=== PATIENT | female | born 1960 | race Caucasian/White ===

== ENCOUNTER 2020-11-13 13:29 | Inpatient (IN) | payer MEDICARE, OTHER ==
[~2020-11-13] VITALS: Ht 172.7 cm; Wt 76.2 kg
--- NOTE | 2020-11-13 13:47 | NUR ---
PT IS IN ROOM #2B. DR BERGMAN EVALUATED THE PT.
[2020-11-13 14:14] LABS: BASOPHILS % (AUTO) 0.3 % (0.0-2.0); EOSINOPHILS % (AUTO) 0.3 % (0.0-7.0); HEMATOCRIT 44.4 % (31.2-41.9); LYMPHOCYTES # (AUTO) 0.6 K/uL (20.0-40.0); LYMPHOCYTES % (AUTO) 7.7 % (20.5-51.5); MEAN CORPUSCULAR HEMOGLOBIN 29.5 uug (24.7-32.8); MEAN CORPUSCULAR HGB CONC 34 g/dL (32.3-35.6); MEAN CORPUSCULAR VOLUME 87.3 fL (75.5-95.3); MONOCYTES # (AUTO) 0.2 K/uL (2.0-10.0); NEUTROPHILS # (AUTO) 7.2 K/uL (1.8-8.9); NEUTROPHILS % (AUTO) 89.7 % (38.5-71.5); PLATELET COUNT (AUTO) 57 K/uL (179-408); RED BLOOD CELL COUNT(AUTO) 5.09 MIL/uL (3.63-4.92); WHITE BLOOD COUNT (AUTO) 8.1 K/uL (3.8-11.8)
[2020-11-13 14:18] LABS: ETHANOL < 3 MG/DL (0-0)
[2020-11-13 14:22] LABS: ACETAMINOPHEN < 2.0 ug/mL (10-30); ALANINE AMINOTRANSFERASE 81 U/L (14-59); ALKALINE PHOSPHATASE 118 U/L (50-136); ASPARTATE AMINOTRANSFERASE 30 U/L (15-37); BILIRUBIN,DIRECT 0.2 mg/dL (0.0-0.2); BILIRUBIN,TOTAL 0.5 mg/dL (0.2-1.0); CARBON DIOXIDE 28 mmol/L (21-32); CHLORIDE 106 mmol/L (98-107); CREATININE 1.2 mg/dL (0.6-1.3); GLUCOSE 142 mg/dL (74-106); POTASSIUM 3.8 mmol/L (3.5-5.1); TOTAL PROTEIN, SERUM 6.5 g/dL (6.4-8.2); UREA NITROGEN, BLOOD 33 mg/dL (7-18)
[2020-11-13] MEDS ORDERED: ACET-2605 PO (14:24)
[2020-11-13] MEDS ORDERED: ARIP5TAB10 PO (14:24)
[2020-11-13] MEDS ORDERED: ACET-2154 PO (14:24)
[2020-11-13 14:30] LABS: THYROID STIMULATING HORMONE 0.774 mIU/mL (0.358-3.740)
[2020-11-13 14:48] LABS: LYMPHOCYTES % (MANUAL) 10 % (20-40); MONOCYTES % (MANUAL) 3 % (2-10); NEUTROPHILS % (MANUAL) 87 % (42-75)
[2020-11-13] MEDS ORDERED: LEVO25TA9 PO (14:50)
[2020-11-13] MEDS ORDERED: CLON1TAB23 PO (14:50)
[2020-11-13] MEDS ORDERED: ALBU2.5V38 IH (14:50)
[2020-11-13] MEDS ORDERED: DOCU100C36 PO (14:50)
[2020-11-13] MEDS ORDERED: DIVA250T4 PO (14:50)
[2020-11-13] MEDS ORDERED: BACL10TA PO (14:50)
[2020-11-13] MEDS ORDERED: DIPH25CA83 PO (14:50)
[2020-11-13] MEDS ORDERED: LACT1CAP61 PO (14:50)
[2020-11-13] MEDS ORDERED: THIA100T13 PO (14:50)
[2020-11-13] MEDS ORDERED: ZINC SULFATE PO (14:50)
[2020-11-13] MEDS ORDERED: PRED2.5T PO (14:50)
[2020-11-13] MEDS ORDERED: MELA3TAB41 PO (14:50)
[2020-11-13] MEDS ORDERED: ASCO500P18 PO (14:50)
[2020-11-13] MEDS ORDERED: ALBU6.7H9 IH (14:50)
[2020-11-13] MEDS ORDERED: MAGN400O6 PO (14:50)
[2020-11-13] MEDS ORDERED: ONDA4TAB11 SL (14:50)
[2020-11-13] MEDS ORDERED: MULT-213 PO (14:50)
[2020-11-13] MEDS ORDERED: PANT40TA2 PO (14:50)
[2020-11-13] MEDS ORDERED: CHOL-9 PO (14:50)
[2020-11-13] MEDS ORDERED: NA P133E RC (14:50)
[2020-11-13] MEDS ORDERED: BISA10SU12 RC (14:50)
[2020-11-13] MEDS ORDERED: SUMATRIPTAN SQ (14:50)
[2020-11-13] MEDS ORDERED: CRAN450T9 PO (14:50)
[2020-11-13] MEDS ORDERED: FERR325T28 PO (14:50)
[2020-11-13] MEDS ORDERED: FAMO20TA8 PO (14:50)
[2020-11-13] MEDS ORDERED: HYDR2TAB4 PO (14:50)
[2020-11-13] MEDS ORDERED: AMIT100T2 PO (14:50)
--- NOTE | 2020-11-13 15:42 | NUR ---
Payal roblero in ED - 11/13/20 at [address] BERGMAN SPOKE TO [facility] [place] FOR CONSULT.
--- NOTE | 2020-11-13 15:43 | NUR ---
CRISIS TRUCK DESPATCHER LUKASZ EVALUATED THE PT. PT WAS PLACED ON 51/50 HOLD GRAVELY DISABLED AND DANGER TO OTHERS.
[2020-11-13 16:45] VITALS: BP 109/88
--- NOTE | 2020-11-13 16:45 | NUR ---
GPS: Nursing Notes: Admitting Notes: Patient admitted to MHU on 5150 DTO & GD due to increased agitation and striking out behavior, on face to face assessment, hyperverbal, talking incoherently, talking to self, loud and pressured speech, anxious affect, poor impulse control, medically clear through ER, port a cath on right right side of chest, patent and flush today by ER staff, A/Ox1, oriented to the unit and admitting package given to the patient, Dr. Smalls and Dr. Nasir Hernandez informed of admission by charge nurse, continue to monitor for safety, continue with admission plan.
--- NOTE | 2020-11-13 16:56 | NUR ---
PT WAS TRANSFERED TO [facility] ROOM #139A. REPORT WAS GIVEN TO RN MHU.
[2020-11-13] MEDS ORDERED: BLOOD SUGAR DIAGNOSTIC 1 EACH STRIP VI ONE (17:15)
[2020-11-13] MEDS ORDERED: MAGNESIUM HYDROXIDE 30 ML LIQUID UDC PO PRN (17:15)
[2020-11-13] MEDS ORDERED: MAG HYDROX/AL HYDROX/SIMETH 30 ML LIQUID UDC PO PRN (17:15)
[2020-11-13] MEDS ORDERED: LORAZEPAM 0.5 MG TABLET PO PRN (17:15)
--- NOTE | 2020-11-13 18:00 | NUR ---
CALLED AND LEFT MESSAGE TO DR. Luis KWON REGARDING MEDICATION RECONCILIATION. ALSO TO NOTIFY THAT PT HAS A PORTACATH ON RUC. AWAITING CALL BACK. DR. ELMORE NOTIFIED OF PT'S ARRIVAL TO UNIT. ROUTING STANDING ORDERS APPLIED.
[2020-11-13] MEDS: ACETAMINOPHEN 325 MG TABLET PO PRN (19:22)
[2020-11-13 20:00] VITALS: BP 125/60
[2020-11-13] MEDS: TEMAZEPAM 7.5 MG CAPSULE PO PRN (21:05)
[2020-11-13] MEDS ORDERED: ALBUTEROL SULFATE 2.5 MG/3 ML NEBU IH PRN (22:15)
[2020-11-13] MEDS ORDERED: ACETAMINOPHEN ES 500 MG TABLET PO PRN (22:15)
[2020-11-13] MEDS ORDERED: BISACODYL 10 MG SUPP.RECT RC PRN (22:15)
[2020-11-13] MEDS ORDERED: ONDANSETRON ODT 4 MG TAB.RAPDIS SL PRN (22:15)
[2020-11-13] MEDS ORDERED: IV LACTATED RINGERS SOLUTION 1,000 ML IV PRN (22:45)
[2020-11-14] MEDS: HYDROMORPHONE HCL 2 MG TABLET PO SCH ×3 (00:14→12:19)
[2020-11-14] MEDS: LORAZEPAM 1 MG TABLET PO PRN ×2 (03:13→20:57)
--- NOTE | 2020-11-14 03:55 | NUR ---
Received patient form previous shift , half naked and in a loud, hyperverbal , energetic state. Disbursing Officer was not able to engage with this patient in any meaningful conversation d/t patient speaking tangential and was rambling on. This patient appeared unkept and verse writer noted her maryellen catheter, central line tubing was dangling off her right chest wall. Patient was medicated for anxiety and showered. After that, the central line dressing was changed and flushed line using aseptic technique. Patient tolerated it well. Noted that this patient had a low grade temperature of 99.5 at the beginning of the shift. Tylenol was given and the re check is 99.0 . Patient has been very hyperactive and was trowing linens on the floor in her room, and skipping in the hallway. Will continue to monitor patient for safety, redirect and reorient patient when needed, and provide a calm, therapeutic environment when possible.
[2020-11-14] MEDS: BACLOFEN 10 MG TABLET PO SCH ×3 (05:48→20:57)
[2020-11-14] MEDS: LEVOTHYROXINE SODIUM 25 MCG TABLET PO SCH (05:49)
--- NOTE | 2020-11-14 06:15 | NUR ---
Patient had 0 hour of sleep last night. Patient continues to respond to internal stimuli non stop. PRN and routine medications given per order. Patient tolerating medications well.
[2020-11-14 07:30] VITALS: BP 121/60
[2020-11-14] MEDS: THIAMINE HCL 100 MG TABLET PO SCH (08:35)
[2020-11-14] MEDS: FERROUS SULFATE 325 MG TABEC PO SCH ×2 (08:36→17:15)
[2020-11-14] MEDS: DOCUSATE SODIUM 100 MG CAPSULE PO SCH ×2 (08:36→17:00)
[2020-11-14] MEDS: FAMOTIDINE 20 MG TABLET PO SCH (08:36)
[2020-11-14] MEDS: BENZTROPINE MESYLATE 1 MG TABLET PO SCH ×3 (08:36→17:15)
[2020-11-14] MEDS: HALOPERIDOL 5 MG TABLET PO SCH ×3 (08:36→17:15)
[2020-11-14] MEDS: DIVALPROEX 250 MG TABLET.DR PO SCH ×3 (08:37→17:00)
[2020-11-14] MEDS ORDERED: DIVALPROEX 250 MG TABLET.DR PO SCH (09:00)
[2020-11-14 16:00] VITALS: BP 115/46
--- NOTE | 2020-11-14 16:09 | NUR ---
REQUESTED 1:1 SITTER WITH [employer]RAFTER [employer], AND JUSTIFICATION FORM SUBMITTED DUE TO PT HAVING A CENTRAL LINE. PT REMAINS CONFUSED, DISORGANIZED, AND MANIC. [employer] SAID REQUEST IS DENIED BY INCOME TAX CONSULTANT GISELE.
[2020-11-14] MEDS: HYDROMORPHONE HCL 2 MG TABLET PO PRN (17:15)
--- NOTE | 2020-11-14 18:15 | NUR ---
IVF COMPLETED. PATIENT HAS A PORTACATH. ARTEAGA NEEDLE DC'D WITHOUT INCIDENCE. STERILE DSG APPLIED TO SITE. NO DISTRESS NOTED.
[2020-11-14 20:14] VITALS: BP 128/64
[2020-11-14] MEDS: TEMAZEPAM 7.5 MG CAPSULE PO PRN (22:40)
[2020-11-14] MEDS: diphenhydrAMINE 25 MG CAP PO PRN (22:41)
[2020-11-15] MEDS: HYDROMORPHONE HCL 2 MG TABLET PO PRN (03:44)
[2020-11-15] MEDS: LORAZEPAM 1 MG TABLET PO PRN ×3 (03:44→21:44)
[2020-11-15] MEDS: BACLOFEN 10 MG TABLET PO SCH ×3 (05:53→21:41)
[2020-11-15] MEDS: LEVOTHYROXINE SODIUM 25 MCG TABLET PO SCH (05:53)
[2020-11-15 07:28] LABS: *BILIRUBIN,URIN 1+ (NEGATIVE); *BLOOD, URINE 2+ (NEGATIVE); *CLARITY,URINE CLOUDY (CLEAR); *COLOR,URINE YELLOW (YELLOW); *KETONES,URINE 1+ (NEGATIVE); LEUKOCYTE ESTERASE ,URINE NEGATIVE (NEGATIVE); NITRITE, URINE NEGATIVE (NEGATIVE); UGLUCOSE NEGATIVE (NEGATIVE)
[2020-11-15 07:30] VITALS: BP 123/84
[2020-11-15 07:36] LABS: POTASSIUM 4.1 mmol/L (3.5-5.1)
[2020-11-15 07:43] LABS: BASOPHILS % (AUTO) 0.1 % (0.0-2.0); EOSINOPHILS # (AUTO) 0.1 K/uL (0.0-0.7); EOSINOPHILS % (AUTO) 0.9 % (0.0-7.0); HEMATOCRIT 43.1 % (31.2-41.9); HEMOGLOBIN 14.5 g/dL (10.9-14.3); LYMPHOCYTES # (AUTO) 1.1 K/uL (20.0-40.0); LYMPHOCYTES % (AUTO) 9.5 % (20.5-51.5); MEAN CORPUSCULAR HEMOGLOBIN 29.5 uug (24.7-32.8); MEAN CORPUSCULAR HGB CONC 34 g/dL (32.3-35.6); MEAN CORPUSCULAR VOLUME 87.6 fL (75.5-95.3); MONOCYTES # (AUTO) 0.5 K/uL (2.0-10.0); MONOCYTES % (AUTO) 4.4 % (0.0-11.0); NEUTROPHILS # (AUTO) 9.9 K/uL (1.8-8.9); NEUTROPHILS % (AUTO) 85.1 % (38.5-71.5); PLATELET COUNT (AUTO) 62 K/uL (179-408); RED BLOOD CELL COUNT(AUTO) 4.92 MIL/uL (3.63-4.92); WHITE BLOOD COUNT (AUTO) 11.6 K/uL (3.8-11.8)
[2020-11-15 07:48] LABS: *AMPHETAMINE, URINE NEGATIVE (NEGATIVE); *CANNABINOID, URINE NEGATIVE (NEGATIVE); *COCCAINE, URINE NEGATIVE (NEGATIVE); *OPIATE, URINE POSITIVE (NEGATIVE); *PHENCYCLIDINE SCREEN,URINE NEGATIVE (NEGATIVE)
[2020-11-15] MEDS: THIAMINE HCL 100 MG TABLET PO SCH (08:53)
[2020-11-15] MEDS: diphenhydrAMINE 25 MG CAP PO PRN (08:53)
[2020-11-15] MEDS: FAMOTIDINE 20 MG TABLET PO SCH (08:53)
[2020-11-15] MEDS: BENZTROPINE MESYLATE 1 MG TABLET PO SCH ×3 (08:53→16:52)
[2020-11-15] MEDS: HALOPERIDOL 5 MG TABLET PO SCH ×3 (08:53→16:52)
[2020-11-15] MEDS: FERROUS SULFATE 325 MG TABEC PO SCH ×2 (08:53→16:52)
[2020-11-15] MEDS: DOCUSATE SODIUM 100 MG CAPSULE PO SCH ×2 (08:54→16:52)
[2020-11-15] MEDS: DIVALPROEX 250 MG TABLET.DR PO SCH ×3 (08:54→16:52)
[2020-11-15] MEDS: ACETAMINOPHEN 325 MG TABLET PO PRN (11:26)
[2020-11-15 14:19] LABS: BACTERIA,URINE MANY /HPF (NONE SEEN); RBC,URINE 0-3 /HPF (0-3); SQUAMOUS EPITHELIAL CELL,UR NONE SEEN /HPF (NONE SEEN); WBC,URINE NONE SEEN /HPF (0-3)
[2020-11-15 15:06] VITALS: BP 115/55
[2020-11-15 15:10] LABS: BAND % (MANUAL) 2 % (0-10); EOSINOPHILS % (MANUAL) 1 % (0-8); LYMPHOCYTES % (MANUAL) 8 % (20-40); MONOCYTES % (MANUAL) 3 % (2-10); NEUTROPHILS % (MANUAL) 86 % (42-75)
--- NOTE | 2020-11-15 15:46 | NUR ---
ROEL Initial Discharge Plan: Patient was recently residing at [address] [address] ([phone]). Dean practice coordinator at the facility stated that they are unable to accommodate the patient's needs at their facility and are requesting a locked SNF for the patient. ROEL spoke with Nicola ([phone]) and discussed treatment and discharge plan. ROEL will continue to work with patient, family, and MD to ensure a safe and proper discharge plan.
--- NOTE | 2020-11-15 15:48 | NUR ---
Firearms Report: Glove Turner [employer] Former [employer] completed and submitted a [employer] firearms report for 5150 grave disability and danger to others certifications. A copy of report has been placed in patient chart.
--- NOTE | 2020-11-15 15:59 | NUR ---
ROEL Family Contact: ROEL spoke with Nicola patient's brother in law ([phone]) and discussed treatment and discharge plan.
[2020-11-15 20:00] VITALS: BP 117/66
[2020-11-15] MEDS: TEMAZEPAM 7.5 MG CAPSULE PO PRN (22:42)
--- NOTE | 2020-11-16 02:37 | NUR ---
RECEIVED PATIENT IN HER ROOM. COULD BE HEARD TALKING TO HERSELF BUT DENIED HEARING VOICES.GESTURING AND RAMBLING ON.WYATT CATH HAS BEEN TAKEN OFF AND SHE EXPRESSED NO PAIN.LATER SEEN WALKING UP AND DOWN THE HALLWAY AND WAS GIVEN TAB ATIVAN AT 21:45. AT 22:42 SHE WAS GIVEN RESTORIL WITH GOOD EFFECT.SAFETY MEASURES PUT IN PLACE AND VISUAL CHECKS MADE ON HER. WILL CONTINUE TO MONITOR.
[2020-11-16] MEDS: BACLOFEN 10 MG TABLET PO SCH ×3 (06:48→21:15)
[2020-11-16] MEDS: LEVOTHYROXINE SODIUM 25 MCG TABLET PO SCH (06:49)
[2020-11-16 07:30] VITALS: BP 126/77
[2020-11-16] MEDS: DIVALPROEX 250 MG TABLET.DR PO SCH ×3 (08:23→16:21)
[2020-11-16] MEDS: LORAZEPAM 1 MG TABLET PO PRN (08:23)
[2020-11-16] MEDS: ACETAMINOPHEN 325 MG TABLET PO PRN (08:23)
[2020-11-16] MEDS: DOCUSATE SODIUM 100 MG CAPSULE PO SCH ×2 (08:23→16:21)
[2020-11-16] MEDS: FAMOTIDINE 20 MG TABLET PO SCH (08:23)
[2020-11-16] MEDS: BENZTROPINE MESYLATE 1 MG TABLET PO SCH ×3 (08:23→16:21)
[2020-11-16] MEDS: HALOPERIDOL 5 MG TABLET PO SCH ×4 (08:23→21:15)
[2020-11-16] MEDS: THIAMINE HCL 100 MG TABLET PO SCH (08:23)
[2020-11-16] MEDS: FERROUS SULFATE 325 MG TABEC PO SCH ×2 (08:24→16:21)
[2020-11-16] MEDS: ENSURE ENLIVE (VAN) 240 ML LIQUID PO SCH (08:24)
[2020-11-16 15:20] VITALS: BP 96/53
--- NOTE | 2020-11-16 17:34 | NUR ---
GPS: Nursing Notes: Thought Disorder: Patient is awake and responding to her name, disorganized, impaired judgment, confused, childlike behavior, self destructive by throwing her blanket and bed sheet on the floor, smashing her food on the floor, hyperactive, responding to internal stimuli by talking to unseen others, urinating on her bed, disrobing, poor impulse control, gets easily anxious when redirected, forgetful at times, needs redirection to find her room, unable to formulate a viable plan for self care, continue with treatment plan.
[2020-11-16 20:18] VITALS: BP 110/76
[2020-11-17] MEDS: BACLOFEN 10 MG TABLET PO SCH ×3 (06:29→22:18)
[2020-11-17] MEDS: LEVOTHYROXINE SODIUM 25 MCG TABLET PO SCH (06:29)
[2020-11-17 07:30] VITALS: BP 128/50
[2020-11-17] MEDS: BENZTROPINE MESYLATE 1 MG TABLET PO SCH ×3 (08:43→18:29)
[2020-11-17] MEDS: DOCUSATE SODIUM 100 MG CAPSULE PO SCH ×2 (08:43→18:29)
[2020-11-17] MEDS: THIAMINE HCL 100 MG TABLET PO SCH (08:44)
[2020-11-17] MEDS: HALOPERIDOL 5 MG TABLET PO SCH ×3 (08:44→20:04)
[2020-11-17] MEDS: FAMOTIDINE 20 MG TABLET PO SCH (08:44)
[2020-11-17] MEDS: FERROUS SULFATE 325 MG TABEC PO SCH ×2 (08:44→18:29)
[2020-11-17] MEDS: DIVALPROEX 250 MG TABLET.DR PO SCH ×3 (08:44→18:30)
[2020-11-17] MEDS: ENSURE ENLIVE (VAN) 240 ML LIQUID PO SCH (08:45)
--- NOTE | 2020-11-17 12:17 | NUR ---
ROEL Individual Therapy Note: SW met with patient today to provide brief individual counseling to address patient's presenting problem disorganized thought process. Patient demonstrated disorganized thoughts and poor insight. Patient is observed sitting in her jillian chair, throwing her food and clothing on the floor. SW attempted to engage patient in conversation however patient appears distracted by internal stimuli and is shouting "I see people". SW will stay available for patient for ongoing support.
[2020-11-17 16:00] VITALS: BP 119/77
[2020-11-17 20:15] VITALS: BP 121/79
[2020-11-18] MEDS: BACLOFEN 10 MG TABLET PO SCH ×3 (05:57→21:19)
[2020-11-18] MEDS: LEVOTHYROXINE SODIUM 25 MCG TABLET PO SCH (06:02)
--- NOTE | 2020-11-18 06:43 | NUR ---
GPS: Pt.slept for 4.45 last night. Up on jillian-chair at this time near nurses station for safety. Remains bizarre,disorganized and responding to internal stimuli. Re-directed prn. Fall precautions observed.
[2020-11-18 07:30] VITALS: BP 121/78
[2020-11-18] MEDS: BENZTROPINE MESYLATE 1 MG TABLET PO SCH ×3 (09:11→16:42)
[2020-11-18] MEDS: FAMOTIDINE 20 MG TABLET PO SCH (09:11)
[2020-11-18] MEDS: DOCUSATE SODIUM 100 MG CAPSULE PO SCH ×2 (09:11→16:42)
[2020-11-18] MEDS: HALOPERIDOL 5 MG TABLET PO SCH ×3 (09:12→20:33)
[2020-11-18] MEDS: FERROUS SULFATE 325 MG TABEC PO SCH ×2 (09:12→16:42)
[2020-11-18] MEDS: THIAMINE HCL 100 MG TABLET PO SCH (09:12)
[2020-11-18] MEDS: DIVALPROEX 250 MG TABLET.DR PO SCH ×3 (09:13→16:42)
[2020-11-18] MEDS: ENSURE ENLIVE (VAN) 240 ML LIQUID PO SCH (09:19)
--- NOTE | 2020-11-18 10:32 | NUR ---
ROEL SNF Referral: ROEL faxed patient's referral packet to [facility] (fax: [phone]) attention to [facility]breu or Chollie for review and possible placement.
[2020-11-18 16:00] VITALS: BP 135/73
[2020-11-18 20:23] VITALS: BP 118/61
[2020-11-19] MEDS: LEVOTHYROXINE SODIUM 25 MCG TABLET PO SCH (06:24)
[2020-11-19] MEDS: BACLOFEN 10 MG TABLET PO SCH ×3 (06:25→21:24)
[2020-11-19 07:30] VITALS: BP 97/64
[2020-11-19] MEDS: THIAMINE HCL 100 MG TABLET PO SCH (08:22)
[2020-11-19] MEDS: DOCUSATE SODIUM 100 MG CAPSULE PO SCH ×2 (08:22→17:00)
[2020-11-19] MEDS: BENZTROPINE MESYLATE 1 MG TABLET PO SCH ×3 (08:23→17:00)
[2020-11-19] MEDS: DIVALPROEX 250 MG TABLET.DR PO SCH ×3 (08:23→17:00)
[2020-11-19] MEDS: FERROUS SULFATE 325 MG TABEC PO SCH ×2 (08:23→17:00)
[2020-11-19] MEDS: ENSURE ENLIVE (VAN) 240 ML LIQUID PO SCH (08:23)
[2020-11-19] MEDS: FAMOTIDINE 20 MG TABLET PO SCH (08:23)
[2020-11-19] MEDS: HALOPERIDOL 5 MG TABLET PO SCH ×3 (08:23→20:03)
--- NOTE | 2020-11-19 14:04 | NUR ---
Court Hearing: Patient's court hearing was today and it was upheld for GD.
--- NOTE | 2020-11-19 14:34 | NUR ---
SW Family Contact: This SW spoke with patients brother in law ([phone]) and stated that patient is accepted at [facility] ([phone]) and will be discharged on Wednesday 11/22. He is aware and agreeable with this plan.
[2020-11-19 17:03] VITALS: BP 103/59
[2020-11-19 19:59] VITALS: BP 107/62
[2020-11-19] MEDS: ACETAMINOPHEN 325 MG TABLET PO PRN (20:04)
[2020-11-20] MEDS: LEVOTHYROXINE SODIUM 25 MCG TABLET PO SCH (06:07)
[2020-11-20] MEDS: BACLOFEN 10 MG TABLET PO SCH ×3 (06:07→21:37)
--- NOTE | 2020-11-20 06:37 | NUR ---
GPS: Pt.slept 6.45 last night. Pt.less paranoid,more re-directable. No increased agitation noted. Needs attended. Will continue to monitor.
[2020-11-20 07:30] VITALS: BP 117/72
[2020-11-20] MEDS: THIAMINE HCL 100 MG TABLET PO SCH (08:24)
[2020-11-20] MEDS: FAMOTIDINE 20 MG TABLET PO SCH (08:24)
[2020-11-20] MEDS: FERROUS SULFATE 325 MG TABEC PO SCH ×2 (08:25→17:01)
[2020-11-20] MEDS: BENZTROPINE MESYLATE 1 MG TABLET PO SCH ×3 (08:25→17:01)
[2020-11-20] MEDS: ENSURE ENLIVE (VAN) 240 ML LIQUID PO SCH (08:25)
[2020-11-20] MEDS: DIVALPROEX 250 MG TABLET.DR PO SCH ×3 (08:25→17:02)
[2020-11-20] MEDS: HALOPERIDOL 5 MG TABLET PO SCH ×3 (08:25→20:06)
[2020-11-20] MEDS: DOCUSATE SODIUM 100 MG CAPSULE PO SCH ×2 (08:26→17:02)
[2020-11-20] MEDS: LORAZEPAM 1 MG TABLET PO PRN (10:00)
[2020-11-20] MEDS: ACETAMINOPHEN 325 MG TABLET PO PRN (11:25)
--- NOTE | 2020-11-20 12:59 | NUR ---
Gps/Poured Pipe Maker- Ambulates around w/ no devices, compliant with her routine meds Complained of stomach pain , prn tyklenol was given with adequate relief. Had been in and out of her room,Redirectable, occ. encouragement to initiate simple tasks
[2020-11-20] MEDS ORDERED: SORBITOL 70% SOLUTION 30 ML UDC PO ONE (15:15)
[2020-11-20] MEDS ORDERED: LACTULOSE 20 G/30 ML LIQUID UDC PO ONE (15:15)
[2020-11-20 15:20] VITALS: BP 100/47
--- NOTE | 2020-11-20 15:50 | NUR ---
Gps/Faculty Dean- Complained of stomach ache , cramps per pt., Rebekah DNP in to see patient was informed of pt. complaints , orders received.
--- NOTE | 2020-11-20 16:57 | NUR ---
Gps/Baseboard Heating Installer- Patient had extra large bowel movement after lactulose 30 ml and sorbitol liq. po as ordered. Adequate fluid intake. Tayed in bed this pm, less stomach ache
[2020-11-20] MEDS: HYDROMORPHONE HCL 2 MG TABLET PO PRN (17:27)
--- NOTE | 2020-11-20 18:00 | NUR ---
Gps/Pension Examiner- Patient had extra large BM,, still complainng of lower abdominal pain , cant get comfortable in bed, had been in and out of her room guarding her lower abdomen, no bladder distention noted. Encouraged to stay in bed, and let pain med. works , continue to monitor pain levels.
[2020-11-20 20:00] VITALS: BP 140/93
[2020-11-21] MEDS: BACLOFEN 10 MG TABLET PO SCH ×3 (05:41→21:18)
[2020-11-21] MEDS: LEVOTHYROXINE SODIUM 25 MCG TABLET PO SCH (06:05)
--- NOTE | 2020-11-21 06:13 | NUR ---
Patient slept 7.45 hrs. No agitation or behavior issues through out the night.
[2020-11-21 07:30] VITALS: BP 151/99
[2020-11-21] MEDS: HALOPERIDOL 5 MG TABLET PO SCH ×3 (08:08→20:09)
[2020-11-21] MEDS: FAMOTIDINE 20 MG TABLET PO SCH (08:08)
[2020-11-21] MEDS: BENZTROPINE MESYLATE 1 MG TABLET PO SCH ×3 (08:08→17:45)
[2020-11-21] MEDS: DIVALPROEX 250 MG TABLET.DR PO SCH ×3 (08:09→17:45)
[2020-11-21] MEDS: THIAMINE HCL 100 MG TABLET PO SCH (08:09)
[2020-11-21] MEDS: DOCUSATE SODIUM 100 MG CAPSULE PO SCH ×2 (08:09→17:00)
[2020-11-21] MEDS: ENSURE ENLIVE (VAN) 240 ML LIQUID PO SCH (08:14)
[2020-11-21] MEDS: FERROUS SULFATE 325 MG TABEC PO SCH ×2 (08:35→17:00)
[2020-11-21 09:06] VITALS: BP 151/99
--- NOTE | 2020-11-21 15:52 | NUR ---
Gps/Senior Account Manager- Had been compliant with her routine medications, interacting with her roommate, continue to make her needs known, denies pain , no discomfort at this time.
[2020-11-21 16:00] VITALS: BP 137/55
[2020-11-21 20:00] VITALS: BP 123/61
[2020-11-21] MEDS: HYDROMORPHONE HCL 2 MG TABLET PO PRN (21:37)
[2020-11-22] MEDS: TEMAZEPAM 7.5 MG CAPSULE PO PRN (00:18)
[2020-11-22] MEDS: BACLOFEN 10 MG TABLET PO SCH ×2 (06:07→13:28)
[2020-11-22] MEDS: LEVOTHYROXINE SODIUM 25 MCG TABLET PO SCH (06:08)
--- NOTE | 2020-11-22 06:28 | NUR ---
GPS: Pt.slept for 9 hrs.last night. Denies pain at this time. Re-directed prn. Safety emphasized.
[2020-11-22 07:30] VITALS: BP 112/54
--- NOTE | 2020-11-22 08:29 | NUR ---
SW Discharge Note: Patient will be discharged to [facility]. [address] [place] [address]; ([phone]). Admin A[facility] ([phone]) who confirmed patient is welcomed. Patients brother in law ([phone]) is involved in care and is aware of patients discharge. Patient is alert and oriented x2 and is aware and agreeable with his discharge plan. Patient denies suicidal or homicidal ideation. Patient is unable to provide care for himself however is willing to accept care at the facility. Patient will follow up with (psychiatrist) Dr. Smalls and (Transplant Case Manager) Dr. Campbell at the facility. Patient presented with euthymic mood and congruent affect.
[2020-11-22] MEDS: DIVALPROEX 250 MG TABLET.DR PO SCH ×2 (08:50→12:46)
[2020-11-22] MEDS: HALOPERIDOL 5 MG TABLET PO SCH ×2 (08:50→12:46)
[2020-11-22] MEDS: FERROUS SULFATE 325 MG TABEC PO SCH (08:50)
[2020-11-22] MEDS: DOCUSATE SODIUM 100 MG CAPSULE PO SCH (08:50)
[2020-11-22] MEDS: BENZTROPINE MESYLATE 1 MG TABLET PO SCH ×2 (08:50→12:46)
[2020-11-22] MEDS: THIAMINE HCL 100 MG TABLET PO SCH (08:50)
[2020-11-22] MEDS: FAMOTIDINE 20 MG TABLET PO SCH (08:50)
[2020-11-22] MEDS: ENSURE ENLIVE (VAN) 240 ML LIQUID PO SCH (08:51)
--- NOTE | 2020-11-22 14:00 | NUR ---
GPS: Nursing Notes: Discharge Notes: Patient is awake and responding to her name, cooperative with nursing care, compliant with her medications, following staff directions, denies SI/HI, denies AH/VH, denies pain or discomfort, denies SOB. Patient discharge to [facility] [place] [address] . Patient's brother in law Kody Angeles informed of discharge by social service technician, report given to facility's nurse - SHARRON Sow, transported to facility via ambulance. Patient will follow up with (psychiatrist) Dr. Smalls and (Assembly Manager) Dr. Campbell for aftercare at the facility.
== END 2020-11-22 14:00 | DRG 885 ==
LOC: ER 13:31 → GPS 16:34
PROVIDERS: ADMIT Psychiatry & Neurology Psychiatry; ATTEND Nurse Practitioner Acute Care
DX: F25.9 Schizoaffective disorder, unspecified (principal); N17.0 Acute kidney failure with tubular necrosis; M32.9 Systemic lupus erythematosus, unspecified; E86.0 Dehydration; E83.52 Hypercalcemia; Z86.16 Personal history of COVID-19; D69.6 Thrombocytopenia, unspecified; E03.9 Hypothyroidism, unspecified; J45.909 Unspecified asthma, uncomplicated; K21.9 Gastro-esophageal reflux disease without esophagitis; M19.90 Unspecified osteoarthritis, unspecified site; M79.7 Fibromyalgia; G40.909 Epilepsy, unspecified, not intractable, without status epilepticus; F43.10 Post-traumatic stress disorder, unspecified; Z20.822 Contact with and (suspected) exposure to COVID-19; E66.9 Obesity, unspecified; Z68.25 Body mass index [BMI] 25.0-25.9, adult; Z73.6 Limitation of activities due to disability; L60.3 Nail dystrophy; M79.672 Pain in left foot; M79.671 Pain in right foot; F29 Unspecified psychosis not due to a substance or known physiological condition
CPT/HCPCS: 36415; 70030-TC; 71045; 80164; 84443; 85025; 87086; 93005; A4663; A9150; G0480; J3490; J7120; Q0163